=== PATIENT | male | born 1945 | race Caucasian/White ===

== ENCOUNTER 2018-11-27 21:47 | Emergency (ER) | payer MEDICARE, OTHER ==
[~2018-11-27] VITALS: Ht 177.8 cm; Wt 99.8 kg
[~2018-11-27 21:47] MED LIST: ACETAMINOPHEN325 M1 PO; ASPIRIN EC81 MG PO; CELEXA20 MG PO; MUCINEX600 MG PO; NEOSPORIN OINTM30 GM TP; OMEPRAZOLE20 M1 PO; PRAVACHOL10 MG PO; SUDAFED30 MG PO; TUMS X-STR300 MG PO; VITAMIN D1000 UNI1 PO
[2018-11-27] MEDS ORDERED: CITRUCEL POWDE454 GM (22:09)
[2018-11-27] MEDS ORDERED: LIPITOR20 MG PO (22:09)
[2018-11-28] MEDS ORDERED: PREDNISONE20 MG PO (00:31)
[2018-11-28] MEDS ORDERED: TESSALON PERLE100 MG PO (00:31)
--- NOTE | 2018-11-28 07:52 | EKG ---
[facility] [address] [facility] [place], [place] [address] Signed Normal sinus rhythm Cannot rule out Anterior infarct , age undetermined Abnormal ECG No previous ECGs available Confirmed by DANAY VILCHIS MD ([id number]) on 11/28/2018 7:52:10 AM Electronically Signed By: DANAY VILCHIS MD 11/28/18 0752 PATIENT NAME: ORTEGA GRIMALDO Electrocardiogram DATE OF : 47 PHYSICIAN: DANAY VILCHIS MD REPORT #: [id number] REPORT IS CONFIDENTIAL AND NOT TO BE RELEASED WITHOUT AUTHORIZATION
== END 2018-11-28 00:51 | disposition home or self-care (01) ==
LOC: ED 21:47
DX: J06.9 Acute upper respiratory infection, unspecified (principal); J98.01 Acute bronchospasm; E78.5 Hyperlipidemia, unspecified; F41.9 Anxiety disorder, unspecified; Z87.891 Personal history of nicotine dependence; Z79.899 Other long term (current) drug therapy
CPT/HCPCS: 71046; 93005; 93010; 94640; 99283-25; J1100

== ENCOUNTER 2020-12-26 15:52 | Emergency (ER) | payer MEDICARE, OTHER ==
[~2020-12-26] VITALS: Ht 177.8 cm; Wt 99.8 kg
[~2020-12-26 15:52] MED LIST changes: +CITRUCEL POWDE454 GM; +LIPITOR20 MG PO; +PREDNISONE20 MG PO; +TESSALON PERLE100 MG PO
== END 2020-12-26 18:37 | disposition home or self-care (01) ==
LOC: ED 15:52
DX: S93.401A Sprain of unspecified ligament of right ankle, initial encounter (principal); W10.9XXA Fall (on) (from) unspecified stairs and steps, initial encounter; E78.5 Hyperlipidemia, unspecified; Z79.899 Other long term (current) drug therapy
CPT/HCPCS: 73610; 99283-25

== ENCOUNTER 2022-10-18 14:24 | Emergency (ER) | payer MEDICARE, OTHER ==
[~2022-10-18] VITALS: Ht 177.8 cm; Wt 84.8 kg
[~2022-10-18 14:24] MED LIST changes: +CEPHALEXIN500 M1 PO; +CEPHALEXIN750 MG PO; +TAMSULOSIN HCL0.4 MG PO
--- OUTSIDE RECORDS SUMMARY | 2022-10-18 14:32 | XMS ---
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 Pj has no Care Guidelines for this patient. Kim V[facility] (12 MO.) [facility] NOTE: Visits indicate total known visits. ED/C VISIT TRACKING (12 MO.) [facility] Emergency COMPLAINT: - FALLING OFTEN 09/25/2022 01:14 JO[facility] [place] [place] TYPE: Emergency COMPLAINT: - WEAKNESS DIAGNOSES: - Unspecified fall, initial encounter - Contact with and (suspected) exposure to COVID-19 - Weakness - Repeated falls - Hyperlipidemia, unspecified - Other long term care administrator (current) drug therapy - Laceration without foreign body of scalp, initial encounter 09/15/2022 15:57 JO[facility]CE [place] TYPE: Emergency COMPLAINT: - BLOOD PRESSURE PROBLEM DIAGNOSES: - Fever, unspecified - Urinary tract infection, site not specified - Contact with and (suspected) exposure to COVID-19 - Hyperlipidemia, unspecified - Other prison (current) drug therapy INPATIENT VISIT TRACKING (12 MO.) No inpatient visits to display in this time frame [email or web address]
--- NOTE | 2022-10-19 13:08 | EKG ---
[facility] [address] [facility] [place] [address] Signed Normal sinus rhythm Minimal voltage criteria for LVH, may be normal variant ( R in aVL ) Borderline ECG When compared with ECG of 25-SEP-2022 01:40, T wave inversion no longer evident in Inferior leads Confirmed by LUCILA GARCIA MD ([id number]) on 10/19/2022 1:07:57 PM Electronically Signed By: LUCILA GARCIA MD 10/19/22 1308 PATIENT NAME: ORTEGA GRIMALDO Electrocardiogram DATE OF : 47 PHYSICIAN: LUCILA GARCIA MD REPORT #: [id number] REPORT IS CONFIDENTIAL AND NOT TO BE RELEASED WITHOUT AUTHORIZATION
== END 2022-10-18 18:30 | disposition home or self-care (01) ==
LOC: ED 14:24
DX: R53.1 Weakness (principal); E78.5 Hyperlipidemia, unspecified; Z79.899 Other long term (current) drug therapy
CPT/HCPCS: 36415; 80053; 81001; 83735; 84484; 85025; 93005; 93010; 99285-25

== ENCOUNTER 2023-07-19 08:00 | Emergency (ER) | payer MEDICARE, OTHER ==
[~2023-07-19] VITALS: Ht 185.4 cm; Wt 89.8 kg
[~2023-07-19 08:00] MED LIST changes: +CEFDINIR300 MG PO; +CIPRO250 MG PO; +FIBER SELECT G1 EACH PO; +MIRALAX17 GM PO; +MOVE FREE ULTR1 EAC2 PO; +OCUVITE LUTEIN1 EAC2 PO; +PENICILLIN V P500 MG PO; +TRAMADOL HCL50 MG PO; +TUMS SMOOTHIES300 MG PO; +TUMS300 MG PO
[2023-07-19 08:39] LABS: BILIRUBIN, URINE NEGATIVE (negative); BLOOD/HGB, URINE SMALL (Negative); KETONE, URINE NEGATIVE (Negative); LEUK ESTERASE, URINE LARGE (negative); NITRITE, URINE NEGATIVE (negative); PH, URINE 6.5 (5-7)
[2023-07-19 08:47] LABS: BASOPHILS 0.3 % (0-2); EOSINOPHILS 0.6 % (0-6); HEMATOCRIT 40.3 % (35.0-50.0); HEMOGLOBIN 13.7 g/dL (12.0-18.0); LYMPHOCYTES 22.3 % (24-44); MCH 32.8 (27-36); MCV 96.4 fl (81-99); MONOCYTES 8.3 % (0-12); NEUTROPHILS 68.5 % (39-80); PLATELET COUNT 268 K/uL (140-440); RBC 4.18 M/ul (4.3-5.7); RDW 13.4 (10.5-15.0)
[2023-07-19 08:49] LABS: WHITE BLOOD CELLS, URINE >50 /HPF (0-5)
[2023-07-19 08:52] LABS: BACTERIA, URINE 1+ /hpf (negative); COLLECTION TYPE, URINE CLEAN CATCH; REFLEX CULTURE, URINE Yes (No)
[2023-07-19 08:58] LABS: ALBUMIN 3.7 g/dL (3.4-5.0); ALBUMIN/GLOBULIN RATIO 1.12 (1.1-2.4); ANION GAP 14.1 (7-21); BUN/CREATININE RATIO 12.59 (6.0-28.6); CALCIUM 9.2 mg/dL (8.5-10.1); CREATININE, SERUM 1.35 mg/dL (0.70-1.30); POTASSIUM 4.1 mmol/L (3.5-5.1)
[2023-07-19] MEDS ORDERED: LEVOFLOXACIN500 MG PO (09:16)
[2023-07-19 11:11] VITALS: BP 152/61
== END 2023-07-19 11:11 | disposition home or self-care (01) ==
LOC: ED 08:00
PROVIDERS: Internal Medicine
DX: N39.0 Urinary tract infection, site not specified (principal); Z79.899 Other long term (current) drug therapy; Z96.0 Presence of urogenital implants
CPT/HCPCS: 36415; 80053; 81001; 83605; 85025; J1956; J7040

== ENCOUNTER 2024-10-02 09:46 | Emergency (ER) | payer MEDICARE, OTHER ==
[~2024-10-02] VITALS: Ht 185.4 cm; Wt 85.7 kg
[~2024-10-02 09:46] MED LIST changes: +BACTRIM DS TAB1 EACH PO; +LEVOFLOXACIN500 MG PO; +NEOSPORIN OIN28.3 GM TOP; -NEOSPORIN OINTM30 GM TP
[2024-10-02 11:29] LABS: BILIRUBIN, URINE POSITIVE (negative); BLOOD/HGB, URINE LARGE (Negative); KETONE, URINE NEGATIVE (Negative); LEUK ESTERASE, URINE MODERATE (negative); NITRITE, URINE POSITIVE (negative)
[2024-10-02 11:36] LABS: BACTERIA, URINE 1+ /hpf (negative); CASTS, URINE NONE SEEN \\lpf; COLLECTION TYPE, URINE CATH; CRYSTALS, URINE NONE SEEN (0-1+); EPITHELIAL CELLS, URINE SQUAMOUS 1+ /lpf (0-1+); RED BLOOD CELLS, URINE >50 /hpf (0-5); REFLEX CULTURE, URINE Yes (No)
[2024-10-02] MEDS ORDERED: CEFDINIR 300 MG CAP PO ONE (11:45)
[2024-10-02] MEDS ORDERED: CEFTRIAXONE/SODIUM CHLORIDE 2 GM/100 ML PIGGYBACK IV ONE (11:45)
[2024-10-02] MEDS ORDERED: CEFDINIR300 MG PO (13:01)
[2024-10-02 13:12] VITALS: BP 128/71
== END 2024-10-02 13:12 | disposition home or self-care (01) ==
LOC: ED 09:46
PROVIDERS: Emergency Medicine
DX: N39.0 Urinary tract infection, site not specified (principal); E78.5 Hyperlipidemia, unspecified; Z79.899 Other long term (current) drug therapy
CPT/HCPCS: 74176; 81001; 87088; 99284-25

== ENCOUNTER 2024-10-04 08:45 | Inpatient (IN) | payer OTHER, MEDICARE ==
[2024-10-04] VITALS (7 sets, daily range): BP systolic 117–152; BP diastolic 56–657
[~2024-10-04] VITALS: Ht 185.4 cm; Wt 90.4 kg
--- OUTSIDE RECORDS SUMMARY | 2024-10-04 08:51 | XMS ---
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: [facility] PHONE: [phone] Pj has no Care Guidelines for this patient. E.D. VISIT COUNT (12 MO.) 3 JOYCE Moran TOTAL 3 NOTE: Visits indicate total known visits. ED/UCC VISIT TRACKING (12 MO.) 10/04/2024 08:45 [facility] [place] TYPE: Emergency COMPLAINT: - LT ANKLE INJURY 10/02/2024 09:46 [facility]CE Pinto [place] TYPE: Emergency COMPLAINT: - BLOOD IN URINE DIAGNOSES: - Hyperlipidemia, unspecified - Other snf (current) drug therapy - Urinary tract infection, site not specified 04/01/2024 10:[address] [facility] [place] TYPE: Emergency COMPLAINT: - POSS UTI, R EYE BLACK DIAGNOSES: - Contusion of eyeball and orbital tissues, right eye, initial encounter - Disorientation, unspecified - Other moth exterminator (current) drug therapy - Unspecified fall, initial encounter - Urinary tract infection, site not specified INPATIENT VISIT TRACKING (12 MO.) No inpatient visits to display in this time frame [email or web address]
[2024-10-04 09:03] LABS: BASOPHILS 0.4 % (0-2); EOSINOPHILS 0.6 % (0-6); HEMATOCRIT 42.6 % (35.0-50.0); HEMOGLOBIN 14.4 g/dL (12.0-18.0); LYMPHOCYTES 29.2 % (24-44); MCH 32.7 (27-36); MCHC 33.9 g/dl (30-36); MCV 96.4 fl (81-99); MONOCYTES 8.5 % (0-12); NEUTROPHILS 61.3 % (39-80); PLATELET COUNT 293 K/uL (140-440); RBC 4.41 M/ul (4.3-5.7); RDW 12.9 (10.5-15.0)
[2024-10-04 09:20] LABS: ALBUMIN 3.3 g/dL (3.4-5.0); ALBUMIN/GLOBULIN RATIO 0.87 (1.1-2.4); BILIRUBIN, TOTAL 0.8 ng/dL (0.2-1.0); BUN/CREATININE RATIO 17.51 (6.0-28.6); CREATININE, SERUM 1.37 mg/dL (0.70-1.30); PROTEIN, TOTAL 7.1 g/dL (6.4-8.2)
[2024-10-04] MEDS ORDERED: fentaNYL citrate 100 MCG/2 ML VIAL IV ONE (10:00)
[2024-10-04] MEDS ORDERED: CEFDINIR 300 MG CAP PO ONE (10:45)
--- NOTE | 2024-10-04 11:32 | NUR ---
PT ARRIVES TO FLOOR IN STRETCHER PUSHES BY ED RN. PT TRANSFERRED TO HOSPITAL BED WITH TOTAL ASSIST AND SLIDE SHEET. WT AND VS TAKEN AND RECORDED. PTs CAREGIVER, MILIND, ALSO PRESENT. PT SKIN CHECK WITH BARBRA BE RN. REDNESS NOTED TO GROIN AREA - CLEANED AND BARRIER CREAM APPLIED AT THIS TIME. SURGICAL SCAR NOTED TO MIDLINE OF ABDOMEN. 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 NO OTHER SKIN ISSUES NOTED. PT IN BED AT THIS TIME, ON ROOM AIR WITH SUSTAINED SPO2>96%. NO OTHER NEEDS, CALL LIGHT IN REACH.
[2024-10-04] MEDS ORDERED: HYDROmorphone HCL 1 MG/ML SYR IV PRN ×2 (12:30→17:45)
[2024-10-04] MEDS ORDERED: ondansetron HCL 4 MG/2 ML VIAL IV PRN ×2 (12:30→17:45)
--- NOTE | 2024-10-04 12:35 | NUR ---
ASSESSMENT COMPLETE. PT LUNG SOUNDS CLEAR TO BUL, DIMINISHED IN BLL. PT HAS NO COMPLAINTS OF SOB, MAKES AUDIBLE NOISE UPON EXHALE THAT CAREGIVER MILIND STATES IS NORMAL FOR HIM. HEART SOUNDS NORMAL AND REGULAR, BOWEL TONES ACTIVE IN ALL FOUR QUADRANTS, ABDOMEN IS SOFT AND NON-TENDER TO PALPATION. CAREGIVER SUPPLIES ALL EXTERNAL INFORMATION FOR THIS ASSESSMENT AND REPORTS THAT PT HAD A BOWEL MOVEMENT THIS AM. PTs L LEG IS WRAPPED CAST DRESSING AND COBAN, ELEVATED ON TWO PILLOWS AT THIS TIME. PEDAL PULSE FELT 2+ AND STRONG IN BILAT FEET, CAP REFILL LESS THAN 3 SECONDS, PT TOES ARE WARM AND HE IS WIGGLING THEM. PT HAS NO COMPLAINTS OF PAIN AT THIS TIME AND IS NOT GIVING ANY INDICATION THAT HE IS IN PAIN. PTs CAREGIVER IS CONCERNED REGARDING FENTANYL ADMINISTRATION IN ED, EDUCATED USE ON PAIN MEDICATION WHILE IN THE HOSPITAL, CAREGIVER VERBALIZES UNDERSTANDING. NO REQUESTS AT THIS TIME, CALL LIGHT IN REACH, CAREGIVER REMAINS IN ROOM.
--- NOTE | 2024-10-04 13:07 | NUR ---
STYLIST ASSISTANT ASHLEY AND PT CAREGIVER REPORT PT IS EXPERIENCING PAIN. PRN PAIN MEDICATION ADMINISTERED AT THIS TIME, FLACC SCALE GIVES PAIN LEVEL 3/10. PULSE OX APPLIED WHILE PUSHING MEDICATION AND FOR A FEW MINUTES AFTER, PTs OXYGEN SUSTAINS 96% ON ROOM AIR. NO OTHER NEEDS AT THIS TIME, CALL LIGHT IN REACH.
--- NOTE | 2024-10-04 13:30 | NUR ---
INTO SEE PATIENT. CAREGIVER BRII CALLED. PATIENT PERSONAL INFORMATION REVIEWED. PATIENT LIVES IN A HOUSE WITH BRII. WHEELCHAIR RAMP TO GET INTO. NO STAIRS IN THE HOME. PATIENT HAS ACCESS TO A WALKER IF NEEDED. DOES NOT USE ANY DME AT [facility]. PATIENT DOES NOT HAVE ANY DIFFCULTY GETTING OUT OF BED. BRII STATES "WE WILL SEE WHAT HE NEEDS AFTER SURGERY BUT I WOULD PREFER HIM TO GO HOME HE HAS ACCESS TO STAFF AND GOES TO A DAY PROGRAM." DENIES ANY DIFFCULTY PAYING UTILITIES OR OBATINING FOOD. HE DOES NOT DRIVE. PATIENT DOES NOT NEED ANYTHING FROM AT THIS TIME. WILL CONTINUE TO FOLLOW AND FOLLOW UP POST SURGERY.
--- NOTE | 2024-10-04 13:56 | NUR ---
PT SUPPLIED WITH JUICE, HE IS AWAKE AND ALERT IN BED WATCHING TELEVISION. PT CONTINUALLY REPEATS "MILIND WAS TRYIN..." PT IS REPEATING ANYTHING THIS RN ASKS, APPEARS COMFORTABLE IN THE BED WITH NO FROWN/GRIMACE, NO RESTLESS MOVEMENTS, NO CALLING OUT. LLE REMAINS ELEVATED ON TWO PILLOWS. PORTILLO CATH FREELY DRAINING CLEAR, YELLOW URINE TO L SIDE OF BED. NO REQUESTS AT THIS TIME, CALL LIGHT IN REACH.
--- NOTE | 2024-10-04 15:35 | NUR ---
MED REC COMPLETE
[2024-10-04] MEDS ORDERED: LIDOCAINE 2% VISCOUS 6 ML SYR TOP ONE (16:45)
[2024-10-04] MEDS ORDERED: LACTATED RINGER'S 1,000 ML IV SCH (16:45)
--- NOTE | 2024-10-04 16:45 | NUR ---
DR MCDONALD SPEAKING WITH PTs CAREGIVER, MILIND AND WITH PT. MD ANSWERS ALL QUESTIONS, DISCUSSES DISCHARGE PLAN WITH MILIND. PT AND PT CAREGIVER HAVE NO OTHER CONCERNS AT THIS TIME, DINNER TRAY ARRIVES, CALL LIGHT IN REACH, MILIND REMAINS IN ROOM.
--- NOTE | 2024-10-04 17:42 | NUR ---
LEFT MESSAGE ON DR MCDONALD CELL REGARDING PT PAIN MEDICATION ORDERS.
--- NOTE | 2024-10-04 18:20 | NUR ---
MD RETURNED CALL, VERIFIED PAIN MED/NAUSEA MEDS FOR PATIENT. ORDERS UPDATED PER MD VERBAL, DILAUDID 0.5MG Q2HRS PRN, ZOFRAN 4MG IV Q6HRS PRN FOR NAUSEA. ORDERS UPDATED THE BRIDGE ORDERS WILL FALL OFF IN MIDDLE OF NIGHT.
--- NOTE | 2024-10-04 18:30 | NUR ---
PRN PAIN MEDICATION ADMINSTERED, SEE MAR. PT CAREGIVER REPORTS PT HAS COMPLAINED OF L ANKLE PAIN. PT APPEARS TO AGREE WITH THIS, FLACC SCORE RATED. PT RESTING IN BED AT THIS TIME, IVF INFUSING WNL. NO REQUESTS, CALL LIGHT IN REACH, PT HAS THREE VISITORS IN ROOM AT THIS TIME.
--- NOTE | 2024-10-04 19:33 | NUR ---
REPORT RECIEVED FROM DAY SHIFT RN. PATIENT RESTING IN BED WITH FOSTER "SISTER" MILIND IN ROOM. NO NEEDS AT THIS TIME. CALL LIGHT IN REACH.
--- NOTE | 2024-10-04 20:25 | NUR ---
PATIENT RESTING IN BED WITH COMPLAINTS OF LLE PAIN. VS AND I&Os OBTAINED AND RECORDED. PRN PAIN MEDICATION ADMINISTERED. IV FLUSHES WNL. SUPRAPUBIC CATHETER CARE PERFORMED PER PROTOCOL. PATIENT REPOSTIONED IN BED. LLE ELEVATED WITH 2 PILLOWS. PATIENT HAS NO FURTHER NEEDS AT THIS TIME. BED ALARM ON. ASSESMENT COMPLETE. CALL LIGHT IN REACH.
--- NOTE | 2024-10-04 23:39 | NUR ---
ROUNDING ON PATIENT. PATIENT RESTING IN BED WITH EYES OPEN. THIS RN ASKED PATIENT IF HE WAS IN PAIN AND HE STATED "PAIN". PATIENT THAN STATED "PAIN IN LEG". PRN PAIN MEDICATION ADMINISTERED. PATIENT DENIES FURTHER NEEDS AT THIS TIME. CALL LIGHT IN REACH. BED ALARM ON.
[2024-10-05] VITALS (12 sets, daily range): BP systolic 112–155; BP diastolic 47–69
--- NOTE | 2024-10-05 00:01 | NUR ---
PATIENT NPO AT THIS TIME. FOOD AND DRINKS REMOVED OFF BEDSIDE TABLE.
--- NOTE | 2024-10-05 01:25 | NUR ---
ROUNDING ON PATIENT. PATIENT STATING LLE PAIN. PRN PAIN MEDICATION ADMINISTERED. VS AND I&Os OBTAINED AND RECORDED. LLE ELEVATED ON PILLOWS. BED ALARM ON. CALL LIGHT IN REACH.
--- NOTE | 2024-10-05 03:19 | NUR ---
PATIENT RESTING IN BED WITH EYES CLOSED. RESPIRATIONS EVEN AND UNLABORED. CALL LIGHT IN REACH.
--- NOTE | 2024-10-05 05:02 | NUR ---
ROUNDING ON PATIENT. VS AND I&Os OBTAINED AND RECORDED. PRN PAIN MEDICATION ADMINSITERED. NO FURTHER NEEDS. CALL LIGHT IN REACH.
--- NOTE | 2024-10-05 05:55 | NUR ---
PATIENT RESTING IN BED. PRE-SURGICAL [place]IPEDOWN COMPLETE. NEW GOWN AND LINENS PLACED. SCD PLACED ON RLE. LLE ELEVATED ON 2 PILLOWS. PATIENT GYPSY WELL. BED ALARM ON. NO FURTHER NEEDS. CALL LIGHT IN REACH.
[2024-10-05] MEDS ORDERED: TRANEXAMIC ACID IN NACL,ISO-OS 1,000 MG/100 ML PIGGYBACK IV SCH (07:00)
[2024-10-05] MEDS ORDERED: CEFAZOLIN SODIUM 2 GM/20 ML SYR IV SCH ×2 (07:00→15:00)
--- NOTE | 2024-10-05 07:32 | NUR ---
REPORT RECEIVED FROM DAVID DAVIS. PT RESTING IN BED AWAKE AND ALERT WATCHING TELEVISION, CAREGIVER PRESENT ON COUCH. PT HAS NO REQUESTS AT THIS TIME, CALL LIGHT IN REACH, CAREGIVER REMAINS IN ROOM.
[2024-10-05] MEDS ORDERED: DEXAMETHASONE SOD PHOS 4 MG/ML VIAL ONE ×2 (07:45→10:26)
[2024-10-05] MEDS ORDERED: LIDOCAINE HCL 2% 20 MG/ML VIAL INJ ONE (07:45)
[2024-10-05] MEDS ORDERED: propofoL 200 MG/20 ML VIAL ONE (07:45)
[2024-10-05] MEDS ORDERED: Ropivacaine HCl 0.5% 30 ML VIAL ONE ×2 (07:45)
--- NOTE | 2024-10-05 07:46 | NUR ---
ABX AND TXA READY IN ROOM, LR WITH STRAIGHT TUBING PREPPED. PT RESTING IN BED, CAREGIVER AWAKE AND CONVERSING WITH THIS RN. NO REQUESTS, CALL LIGHT IN REACH.
--- NOTE | 2024-10-05 08:45 | NUR ---
SURGERY ARRIVES TO TAKE PT. PT OFF THE FLOOR AT THIS TIME.
[2024-10-05] MEDS ORDERED: FLU VACC TS2024(65UP)/MF59C/PF 1 EACH SYR IM SCH (09:00)
[2024-10-05] MEDS ORDERED: SODIUM CHLORIDE 0.9% 20 ML IV ONE (09:11)
--- NOTE | 2024-10-05 09:20 | NUR ---
PT REMAINS OFF THE FLOOR AT THIS TIME.
[2024-10-05] MEDS ORDERED: ePHEDrine sulfate 50 MG/ML AMP ONE (09:26)
[2024-10-05] MEDS ORDERED: fentaNYL citrate 100 MCG/2 ML VIAL ONE (09:28)
--- NOTE | 2024-10-05 09:40 | NUR ---
Attempted to see pt and CG. He has not returned from surgery. I spoke with Dr. Palomo and he states pt will need a SNF and cg is now in agreement.
--- NOTE | 2024-10-05 09:43 | NUR ---
PT NOT AVAILABLE FOR VISIT. PROVIDED PRAYER.
--- NOTE | 2024-10-05 10:17 | NUR ---
PT REMAINS OFF THE FLOOR AT THIS TIME.
--- NOTE | 2024-10-05 10:17 | EKG ---
[facility] [address] [facility] [place] [address] Signed Normal sinus rhythm Septal infarct , age undetermined Abnormal ECG When compared with ECG of 08-DEC-2022 10:15, Septal infarct is now present Inverted T waves have replaced nonspecific T wave abnormality in Inferior leads Nonspecific T wave abnormality, worse in Lateral leads Confirmed by Tremaine Olmstead DO ([id number]) on 10/05/2024 10:17:42 AM Electronically Signed By: TREMAINE OLMSTEAD DO 10/05/24 1017 PATIENT NAME: ORTEGA GRIMALDO JUAN Electrocardiogram DATE OF : 47 PHYSICIAN: TREMAINE OLMSTEAD DO REPORT #: [id number] REPORT IS CONFIDENTIAL AND NOT TO BE RELEASED WITHOUT AUTHORIZATION
[2024-10-05] MEDS ORDERED: ondansetron HCL 4 MG/2 ML VIAL ONE (10:26)
[2024-10-05] MEDS ORDERED: ALBUTEROL/IPRATROPIUM 3 ML NEB INH ONE (11:15)
--- NOTE | 2024-10-05 11:17 | OR ---
[facility] [address] [place], [place] [address] Signed DATE OF OPERATION: 10/05/2024 SURGEON: Joshua Palomo MD PREOPERATIVE DIAGNOSIS: Left trimalleolar fracture dislocation, left ankle. POSTOPERATIVE DIAGNOSIS: Left trimalleolar fracture dislocation, left ankle. PROCEDURE PERFORMED: Open reduction and internal fixation, trimalleolar ankle fracture. OVEN TENDER: None. ANESTHESIA: General. TOURNIQUET TIME: 64 minutes. IMPLANTS: A seven hole one-third tubular plate with seven screws laterally, two headless screws medially and two 3.5 screws anteriorly. BRIEF HISTORY: Cristian is a 79-year-old gentleman, who suffered a fracture dislocation of his ankle yesterday morning while walking on icy ground. He was seen in the ER, partially reduced and I admitted the patient for surgery today due to the instability of the fracture. The risks and benefits were discussed with his caregiver and they elected to proceed with surgery. The patient is mentally disabled. PROCEDURE IN DETAIL: Once consent was obtained, he was taken to the operating room. After adequate anesthesia, he was placed on the operating table with a hip bump. The left leg was placed in a well-padded proximal thigh tourniquet. The leg was prepped and draped in the standard sterile fashion. The leg was then exsanguinated using Esmarch bandage and tourniquet inflated to 250 mmHg. The lateral side was approached first through a standard longitudinal incision, carried through the skin and subcutaneous tissue. Electronically Signed By: JOSHUA PALOMO MD 10/05/24 1117 PATIENT NAME: CRISTIAN GRIMALDO OPERATIVE REPORT DATE OF : 47 REPORT #: [id number] PHYSICIAN: JOSHUA PALOMO MD PCP: JASON MCGOWAN DO REPORT IS CONFIDENTIAL AND NOT TO BE RELEASED WITHOUT AUTHORIZATION [facility] [address] [place], [place] [address] Signed Periosteum was incised longitudinally and elevated. The fracture was distracted and cleared. It was then reduced and cross clamped. The isthmus of the fibula was quite small. I was unable to safely get a lag screw from anterior to posterior placed without was afraid breaking the bone. We then elected to go with a neutralization plate on the lateral side. The seven hole one-third tubular plate was then contoured to fit the lateral malleolus and was held with the central screw. It was then adjusted using image intensifier and three screws were placed proximal and three screws distal. Two locking screws were placed at the end. The lateral malleolus still had a fair amount of the plate in the fibula once it was fixed. I suspected that the posterior malleolar fracture was quite unstable. We then split a pointed tenaculum around, behind the fibula and tibia engaging the posterior malleolus and clamping it into position. Two screws were then placed percutaneously from anterior to posterior. Skin incisions were made and blunt dissection was taken down to the bone. Care was taken to protect the surrounding neurovascular structures. Two screws were placed again under image intensifier guidance. Once this was completed, the medial malleolus was approached through a standard longitudinal incision. Care was taken to protect the cephalic vein. The fracture was distracted. There was a large piece of periosteum flipped into it. This was removed and the fracture was reduced and clamped with a malleolar clamp. This was checked using image intensifier and found to be anatomically reduced. Two guidewires for the headless screw set were then placed from the tip of the malleolus engaging the body of the tibia. Two screws were then placed over this and tightened creating a lag effect of the lateral malleolus. The guidewire was removed. All wounds were cleansed with normal saline and irrigated. Deep tissues were closed in layers using 2-0 Monocryl. The skin was closed with florentino throughout. The ankle had a fair amount of swelling, so we did go ahead and placed him in a bulky Meadows dressing over sterile cast padding and Allevyn dressings. He tolerated the procedure well. All sponge, needle, and instrument counts correct. Joshua Palomo MD BA/MODL /[id number] Electronically Signed By: JOSHUA PALOMO MD 10/05/24 1117 PATIENT NAME: CRISTIAN GRIMALDO OPERATIVE REPORT DATE OF : 47 REPORT #: [id number] PHYSICIAN: JOSHUA PALOMO MD PCP: JASON MCGOWAN DO REPORT IS CONFIDENTIAL AND NOT TO BE RELEASED WITHOUT AUTHORIZATION [address] [address] Signed Copies: ~ Electronically Signed By: JOSHUA PALOMO MD 10/05/24 1117 PATIENT NAME: CRISTIAN GRIMALDO OPERATIVE REPORT DATE OF : 47 REPORT #: [id number] PHYSICIAN: JOSHUA PALOMO MD PCP: JASON MCGOWAN DO REPORT IS CONFIDENTIAL AND NOT TO BE RELEASED WITHOUT AUTHORIZATION
--- NOTE | 2024-10-05 11:26 | NUR ---
PT REMAINS OFF THE FLOOR AT THIS TIME.
[2024-10-05] MEDS ORDERED: KETOROLAC TROMETHAMINE 15 MG/ML VIAL IV PRN (11:30)
[2024-10-05] MEDS ORDERED: HYDROCODONE/ACETA 7.5/325 TAB PO PRN (11:30)
--- NOTE | 2024-10-05 11:35 | NUR ---
10/05/24 1135 Lucina Daniels 1047- PT ARRIVES TO THE PACU WITH A NATURAL AIRWAY ON 6L OF O2 VIA MASK. LARGE AMOUNT OF SNORING NOTED WITH AN EXHILATORY WHEEZE AND EXCESSORY MUSCLES USED ON EXHILATION. PT IS ABLE TO MAINTAIN AIRWAY. PT IS REACTIVE TO TACTILE STIMULI AND OPENS HIS EYES BREIFLY AND IMMEDIATELY FALLS BACK TO SLEEP. ALL MONITORS PUT IN PLACE. SURGICAL SITE IS CDI. SUPRPUBIC CATHETER IS DRAINING. LR INFUSING IN PT L AC. NO SIGNS OF APPARENT DISTRESS. HOB INCREASED. ICE PACK PUT IN PLACE AND PILLOW PUT INPLACE FOR ELEVATION AND COMFORT. 1057- PT WAKES TO TACTILE STIMULI AND OPENS HIS EYES. PT IS ABLE TO ADJUST HIS HEAD ON THE PILLOW AND REACHES TOWARD HIS FACE. MASK REMOVED BREIFLY SO THAT PT CAN ITCH HIS FACE. PT IS ENCOURAGED TO COUGH AND PT IS UNABLE TO FOLLOW DIRECTIONS AND FALLS BACK TO SLEEP WITH A LARGE AMOUNT OF SNORING NOTED. 6L OF O2 REPLACED ONPT FACE. RT CALLED FOR TREATMENT. 1111- RESPITORY THERAPY AT BEDSIDE. DUONEB TREATMENT GIVEN. LESS EXPIRATORY WHEEZE NOTED THAN PRIOR TO TREATMENT. PT CLOSES EYES AND FALLS BACK TO SLEEP SNORING. 1113- O2 TURNED OFF AND REMOVED. PTDESATS TO 86% AND2L OF O2 VIA NC PUT IN PLACE AND PT O2 SATS INCREASE TO 92%. WILL CONTINUE TO MONITOR.
--- NOTE | 2024-10-05 11:45 | NUR ---
PT RETURNS FROM SURGERY IN HOSPITAL BED WITH DAVID SCHMIDT. VS TAKEN, CPOX IN PLACE, SCD IN PLACE ON RLE. DRESSING ON RLE C/D/I. PT CURRENTLY ON 2L O2 WITH SPO2 OF 92-93%. NO COMPLAINTS OF PAIN OR NAUSEA AT THIS TIME. TOES ON LLE ARE WARM TO THE TOUCH WITH GOOD CAPILLARY REFILL. PT HAS LLE ELEVATED ON A PILLOW AT THIS TIME. SEVERAL VISITORS PRESENT IN ROOM. PT REPEATING "IT'S TUESDAY" WELL "I'M STONED". ICE WATER PROVIDED, PT HAS NO OTHER REQUESTS AT THIS TIME, CALL LIGHT IN REACH, VISITORS REMAIN IN ROOM.
--- NOTE | 2024-10-05 11:50 | NUR ---
Spoke with pt.s cg, Vannessa Piña. She now is stating they would like this pt to go to [place] on dc. Per Dr. Palomo, pt will be here through the weekend. Pt lives with Vannessa and has done so for 23 years. Pt s guardian is Gisselle Scarlett [phone]. Pt is on service with [facility]. I will notify them plan is for SNF on dc. Called and spoke with [facility] at 1145. 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
--- NOTE | 2024-10-05 11:55 | NUR ---
APPLESAUCE AND ICE WATER PROVIDED. PT REMAINS ON 2L O2 VIA NC, CPOX AT BEDSIDE. PT CONTINUES TO REPORT NO PAIN OR NAUSEA AT THIS TIME. SEVERAL VISITORS IN ROOM.
--- NOTE | 2024-10-05 12:28 | NUR ---
PT OXYGEN TITRATED TO 1L, PT SUSTAINS 93% SPO2 ON CPOX. CURRENTLY EATING A CRISTI CRACKER, REPORTS NO NAUSEA OR PAIN. VISITOR AT BEDSIDE, CALL LIGHT IN REACH.
--- NOTE | 2024-10-05 12:40 | NUR ---
PT RESTING IN BED, ALARM IN PLACE, WATCHING TV. FAMILY JUST LEFT PATIENT IS GETTING SLEEPY ON/OFF. DRESSING TO (L) ANKLE REMAINS CDI, NO BLOODY DRAINAGE. ICE IN PLACE. DENIES ANY NEEDS AT THIS TIME, CALLL LIGHT WITHIN REACH.
--- NOTE | 2024-10-05 12:57 | NUR ---
PT RESTING WITH EYES CLOSED, BREATHING THROUGH MOUTH, RR EVEN AND UNLABORED. SPO2 SUSTAINS 88% ON CPOX WITH GOOD WAVEFORM. OXYGEN TITRATED TO 3L NC AT THIS TIME. SPO2 INCREASES AND SUSTAINS 92%. PT CONTINUES RESTING WITH EYES CLOSED, RR EVEN AND UNLABORED. CALL LIGHT IN REACH.
--- NOTE | 2024-10-05 13:02 | NUR ---
PHYSICAL AND OCCUPATIONAL THERAPY CURRENTLY IN WORKING WITH PT. VISITORS ARE NOT PRESENT AT THIS TIME.
--- NOTE | 2024-10-05 13:30 | NUR ---
Chart faxed to [facility] per CG request.
[2024-10-05] MEDS ORDERED: SEVOFLURANE 250 ML BTL INH ONE (13:33)
--- NOTE | 2024-10-05 13:47 | NUR ---
VS TAKEN. OXYGEN TITRATED TO 2L, PT SUSTAINS SPO2 OF 94% ON CPOX. LLE REMAINS ELEVATED, CAP REFILL LESS THAN 3 SECONDS, TOES WARM TO TOUCH. ROLLED TOWEL BENEATH R HEEL, SCD IN PLACE ON R LEG. PT STATES "FINE" WHEN ASKED HOW HIS LEG FEELS. APPEARS COMFORTABLE IN BED. NO REQUESTS AT THIS TIME, CALL LIGHT IN REACH.
--- NOTE | 2024-10-05 14:30 | NUR ---
Received a text asking if the cg is the POA. I texted her Gisselle's and Vannessa's phone numbers.
[2024-10-05] MEDS ORDERED: ACETAMINOPHEN 500 MG TAB PO SCH (15:00)
--- NOTE | 2024-10-05 15:07 | NUR ---
VS TAKEN. MEDICATION ADMINISTERED, SEE NOV. PT REPOSITIONED IN BED WITH HELP OF JOHNNIE LONG. PT SWALLOWS MEDICATION WITHOUT ISSUE. PT STATES "COLD". WARM BLANKETS PROVIDED. PT STATES "BETTER". PT OXYGEN AT 1L NC, SPO2 SUSTAINS 93% ON CPOX. PT HAS OCCASIONAL COUGH WITH NO PRODUCTION NOTED. PT REPORTS NO SHORTNESS OF BREATH AT THIS TIME. PT PROVIDED WITH SANDWICH BOX, BEGINS TO EAT WITH SETUP ASSISTANCE. RLE IN SCD, LLE DRESSING IS C/D/I, CONTINUES TO BE ELEVATED ON A PILLOW AT THIS TIME. PT ASKED HOW HOW IS FOOT IS FEELING, HE STATES "FINE". PT HAS NO OTHER REQUESTS AT THIS TIME, CALL LIGHT IN REACH, BED ALARM ON, BED IN LOWEST POSITION.
--- NOTE | 2024-10-05 17:20 | NUR ---
PT ASSISTED WITH THIS RN AND SRT ART TO GET ON BEDPAN HE IS REPORTING HE NEEDS TO HAVE A BOWEL MOVEMENT. PT ON BEDPAN AT THIS TIME. CAREGIVER MILIND IN ROOM.
--- NOTE | 2024-10-05 18:11 | NUR ---
MD NOTIFIED OF PTs CAREGIVER REQUESTING BOWEL MEDICATIONS TO BE SCHEDULED. VERBAL ORDER PLACED.
--- NOTE | 2024-10-05 20:50 | NUR ---
Pt alert to self and situation. On room air at this time, CPOX on post op. scds in place. L Leg dressing in place, good CMS. ice to area. SL patent, Medicated with Tylenol schedule and Toradol 15mg IV per 5/10 L ankle pain. Suprapubic catherer in place, draining light tea colored urine. Attends in place. restless, redirectable foster home provider in room and helping with pt.
[2024-10-05] MEDS ORDERED: POLYETHYLENE GLYCOL 3350 1 PACKET PO SCH (21:00)
[2024-10-05] MEDS ORDERED: SENNOSIDES 1 TAB PO SCH (21:00)
--- NOTE | 2024-10-05 22:00 | NUR ---
rESTING, EYES CLOSED, NO FURTHER C/O DISTRESS. ON ROOM AIR NOW. POST OP CPOX IN PLACE. TURNS AND REPOSITIONS SELF IN BED. L LEG ELEVATED W PILLOWS, GOOD CMS. SCDS R LEG. S/P F/C IN PLACE, INTACT, DRAINING TEA COLORED URINE. FOSTER HOME PROVIDER ROOMIN IN
--- NOTE | 2024-10-05 23:55 | NUR ---
AWAKENS EASILY. SKIN MOIST, DRIED, CLEAN GOWN AND BEDDING. COOPERATIVE. AFEBRILE TEMP 96.9 TEMPORAL. TRIES TO HELP. SL PATENT, L LEG ELEVATED IN PILLOWS.NO C/O PAIN. CAREGIVER IN ROOM
[2024-10-06] VITALS (10 sets, daily range): BP systolic 111–146; BP diastolic 45–64
--- NOTE | 2024-10-06 02:37 | NUR ---
resting, eyes closed, no s/sx distress. L leg dressing CDI, elevated with pillows, SCD's R leg
--- NOTE | 2024-10-06 03:38 | NUR ---
FOUND PATIENT OFF CPOX, DC'ED ORDER
--- NOTE | 2024-10-06 05:41 | NUR ---
PATIENT IS NOTED TO BE RESTLESS IN BED. PATIENTS CG REPORTS PATIENT IS IN PAIN, PRN PAIN MEDICATION GIVEN PER ORDER. PATIENT INCONT OF URINE. PATIENTS ATTEND CHANGED AND DEVAUGHN CARE COMPLETED. PATIENT HAS NEW ATTEND IN PLACE. PATIENT REPOSITIONED IN BED. LLE ELEVATED ON PILLOWS. PATIENT HAS SCD IN RLE. PATIENT PROVIDED FRESH ICE WATER. VITALS TAKEN AND RECORDED. INTAKE AND OUTPUT RECORDED. CALL LIGHT IN REACH. BED ALARM ON FOR SAFETY.
--- NOTE | 2024-10-06 07:44 | NUR ---
Patient awake in bed. Patient reports "pain" then points to left leg. Snack provided at this time with one tab Corn 7.5/325mg po. Bed alarm intact, close to RN station.
[2024-10-06] MEDS ORDERED: Rivaroxaban 10 MG TAB PO SCH (08:00)
--- NOTE | 2024-10-06 08:26 | NUR ---
Board has been updated and call light has been placed within reach, caregiver at bedside. No request at this time
[2024-10-06] MEDS ORDERED: CEFDINIR 300 MG CAP PO SCH (09:34)
--- NOTE | 2024-10-06 11:29 | NUR ---
PT UP IN CHAIR, CHECKED IN ON PT, BRII AT CHAIRSIDE AT THIS TIME. CHAIR ALARM IN PLACE, CALL LIGHT WITHIN REACH, PT JUST WATCHING TV/RELAXING IN THE CHAIR. THEY BOTH DENY ANY NEEDS AT THIS TIME. ALL PT CARE NEEDS MET.
--- NOTE | 2024-10-06 13:00 | NUR ---
Patient assisted back to bed using sling, two person assist. Patient received two tabs [place] 7.5/325mg po at this time for LLE pain.
--- NOTE | 2024-10-06 14:24 | NUR ---
Patient taking a nap at this time. No distress, respirations even and non labored.
--- NOTE | 2024-10-06 17:29 | NUR ---
PT LANE DRESSING IS COMING OFF, PT IS WIGGLING DOWN IN THE BED AND MOVING FOOT. DR. MCDONALD INFORMED, PER HIS TELEPHONE ORDERS, TAKE OFF LANE DRESSING, LEAVE CAST PADDING. NEW ALLEVYN OVER THE PIN SITES, EZEQUIEL WRAP AND FRACTURE BOOT. PRIMARY RN NOTIFIED.
--- NOTE | 2024-10-06 18:42 | NUR ---
LLE dressing falling off. New allyvn placed over wound sites, then cast padding, sebastien wrap then fracture boot placed. CMS intact, scant dry blood noted to incision sites. Patient tolerated well. morning caregiver at bedside with patient. Patient appears to have good pain control.
--- NOTE | 2024-10-06 21:31 | NUR ---
PT ALERT TO SELF AND SITUATION ONLY. PLEASANT AND COOPERATIVE, CALM, FOLLOWS INSTRUCTIONS AFTER SEVERAL CUES. ON ROOM AIR. CLEAR LUNGS, ABD SOFT, HEA, LBM 10/04, SMEAR OF BM WHEN WIPING 10/05. SP CATHERER IN PLACE, DRAINING TEA CLORED QS URINE. SCDS TO R LEG, DRESSING TO L LEG AND ORTHO BOOT IN PLACE ELEVATED WITH PILLOWS. PT MOVING LE WELL. WAS MEDICATED WITH NORCO 2 TABS, TOOK MIRALAX, PT REPOSITINED AND TURNED IN BED, ATTENDS IN PLACE. [facility] HOME PROVIDER IN ROOM.
[2024-10-07] VITALS (9 sets, daily range): BP systolic 138–159; BP diastolic 59–67
--- NOTE | 2024-10-07 00:24 | NUR ---
RESTING, EYES CLOSED, NO S/SX DISTRESS, L LEG W ORTHO BOOT IN PLACE, ELEVATED, ABEL REMOVED EARLIER, BED ALARM IN PLACE, FALL PRECAUTIONS IN PLCE
--- NOTE | 2024-10-07 04:00 | NUR ---
PT RESTING, EYES CLOSED, ON ROOM AIR. L LEG ELEVATED WITH PILLOWS, DRESSING CDI, ORTHO BOOT IN PLACE. SCD R LEG, BED ALARM FOR FALL PRECAUTIONS. CAREGIVER IN ROOM
--- NOTE | 2024-10-07 05:10 | NUR ---
caregiver leaving to go home for a few hours, plans to return before breakfast. this rn turned on bed alarm, fall mats in place. pt resting in bed, eyes closed, on ra. briefly awoke, encouraged to rest. call vinicio in [facility] rn aware and heading to room for am cares.
--- NOTE | 2024-10-07 05:39 | NUR ---
Awakens easily, has slept most of this shift, restless when awake, c/o pain L leg, medicated with toradol IV. SL patent. L leg dressing CDI, ortho boot in place. elevated with pillows. toes warm. sp catherer inertion site cleansed. patent, draining pink colored urine at begining of shift, and clear yellow colored at this time. unknown if pt pulls at it. no bm this shift. fresh water and chocolate ensure , tolerated well. cooperative, all cares explained prior to. Bed alrm in place, fall precautions pads in place. hob elevated to comofrt too.
--- NOTE | 2024-10-07 07:42 | NUR ---
PT RESTING IN BED AWAKE, CAREGIVER AT BEDSIDE. REPORT RECEIVED CARE COORDINATED. PT DRINKING FLUIDS WITH ENCOURAGEMENT NO OTHER NEEDS AT THIS TIME.
--- NOTE | 2024-10-07 08:05 | NUR ---
PT CAREGIVER CONCERNED UNDERGARMENT MAY BE DIRTY, PT PASSING GAS. STAFF ASSIST TO CHANGE UNDERGARMENT AND DO DEVAUGHN CARE. SKIN IN TACT NO S/S OF REDNESS OR TROUBLED AREAS. PT IS COOPERATIVE WITH PERSONAL CARES. NO STOOL PASSED. PT EATS ENTIRE MORNING MEAL REMAINS IN BED WITH LE ELEVATED ON PILLOWS. PT DENIES PAIN, HUNGER, OR NEEDS OF. PT HAD SOME AUDIBLE WHEEZES EARLIER IN THE SHIFT ENCOURAGED TO COUGH AND DEEP BREATH AT THAT TIME. LUNG SOUNDS ARE CLEAR NOW WITH NO FURTHER WHEEZE.
--- NOTE | 2024-10-07 08:20 | NUR ---
Board has been updated and call light has been placed within reach
--- NOTE | 2024-10-07 09:25 | NUR ---
PT SITTING UP WATCHING TV, CAREGIVER REMAINS IN THE ROOM. PT DENIES PAIN IN HIS ANKLE. FRESH H20 TO BEDSIDE. NO OTHER NEEDS AT THIS TIME
--- NOTE | 2024-10-07 10:05 | NUR ---
BOOT CHANGED TO SMALLER SIZE PER VERBAL ORDER. CHANGED BY DAVID GARVEY.
--- NOTE | 2024-10-07 10:41 | NUR ---
BETTER FIT BOOT APPLIED A SHORT TIME AGO, WELL TOLERATED. PT RESTING EYES CLOSED NOW, SO IS CAREGIVER. LEFT UNDISTURBED
--- NOTE | 2024-10-07 10:48 | NUR ---
CARE FOR SUPRAPUBIC CATH COMPLETED AT START OF SHIFT. PORTILLO DRAINING TEA COLORED URINE. NOC SHIFT RN REPORTED PT PULLING ON TUBING. TUBING IS OUT OF SIGHT AND PT HAS NOT BEEN OBSERVED PULLING IT THIS SHIFT
--- NOTE | 2024-10-07 11:06 | NUR ---
CCS WORKER IN TO SEE PT SPEAKS WITH DR KC PRIOR TO VISIT FOR PT HISTORY AND TREATMENT. ALL QUESTIONS ANSWERED.
--- NOTE | 2024-10-07 12:22 | NUR ---
PT ASSISTED TO MOVE UP IN BED FOR NOON MEAL. HE IS SELF FEEDING AT THIS TIME CAREGIVER STILL IN THE ROOM. AGREES THE FOOD IS GOOD DENIES NEEDS
--- NOTE | 2024-10-07 13:32 | NUR ---
CAREGIVER GOES HOME STATES SHE HAS TO GET SOME REST. PT ATE 100% OF NOON MEAL APPEARS TO BE COPING WITH ABSENCE OF CAREGIVER WELL. SITTING UP IN BED WATCHING TV. BED ALARM IS SET. VISUAL TO RN STATION
--- NOTE | 2024-10-07 15:10 | NUR ---
pt working with p/t
--- NOTE | 2024-10-07 16:05 | NUR ---
PT HAS SHOWN NO S/S OF PAIN THIS SHIFT AND COOPERATED WITH P/T. PT ANSWERS "NO" WHEN ASKED IF HIS ANKLE HURTS. RESTING IN BED EYES CLOSED AT THIS TIME
--- NOTE | 2024-10-07 17:20 | NUR ---
Assisted RN in changing Pt's brief and bedpad. Boosted Pt in bed. No other needs expressed by Pt. Call light left in reach. Bed alarm set. Caregiver in room. No other needs expressed by Pt.
--- NOTE | 2024-10-07 17:24 | NUR ---
PT UNDERGARMENT CHANGED AND DEVAUGHN CARE COMPLETE. REPOSITIONED FOR EVENING MEAL. PT SISTER IS PRESENT FOR MEAL TIME. DENIES FURTHER NEEDS OF.
--- NOTE | 2024-10-07 21:19 | NUR ---
Awake, restless, follows instructions, turned and repositioned in bed. skin care, clean attends, passing gas, no bm. suprapubic cath in place, draining clear yellow urine. site intact, care done. abd soft, HEA. L leg elevated in pillows, wigles toes, ortho boot/ dressing CDI. in place. SCDs to R leg. SL LAC patent. took senna and Miralax, tolerating liquids well. Medicated with 2 Conde per restlessness and stated "yes" when asked if he was on pain. Bed alarm and fall precautions pads in place.
--- NOTE | 2024-10-07 22:11 | NUR ---
IN BED, HOB ELEVATED, NO RESP DISTRESS. L LEG ELEVATED W PILLOWS, ORTHO BOOT IN PLACE, ICE REMOVED. SCDS R LEG. EYES CLOSED. BED ALRMS IN PLACE
--- NOTE | 2024-10-08 02:23 | NUR ---
ON ROOM AIR, EYES CLOSED. SP CATHERER IN PLACE, DRAINING YELLOW URINE. L LEG ON ORTHO BOOT IN PLCE, ELEVATED WITH PILLOWS. BED ALARM IN PLACE
--- NOTE | 2024-10-08 03:00 | NUR ---
PT WOKE UP RESTLESS, SCREAMING, TRYING TO GET OUT OF BED, REASSURED, REPOSITIONED IN BED, CALMED DOWN, MEDICATED IWTH 1 NORCO PER C/O L LEG PAIN. L LEG ORTHO BOOT IN PLACE, ELEVATED W PILLOWS, SCDS R LEG. WAS COOPERATIVE. AUDIBLE WHEZZING NOTED. LUNGS CLEAR BILAT, WHEEZING IN THROAT AREA AUSCULTATED. CLEARED AFTER CDB AND SIP OF WATER. NO SOB NOTED WITH EXERTION, HELPED WITH REPOSITIONING.
--- NOTE | 2024-10-08 04:13 | NUR ---
restsing, eyes closed, no s/sx distress. L leg elevated in pillows, scds R leg
[2024-10-08 05:00] VITALS: BP 145/64
--- NOTE | 2024-10-08 07:20 | NUR ---
PT RESTING QUIET ALERT AT TIME OF SHIFT REPORT. FRESH H20 PROVIDED. BED ALARM IS SET PT IS VISUAL TO RN STATION. HE DENIES PAIN OR NEEDS OF
--- NOTE | 2024-10-08 08:06 | NUR ---
PT'S CAREGIVER ARRIVES. UNDERGARMENT CHANGED AND PERICARE COMPLETED. PT UP TO THE CHAIR VIA DANICA, CAREGIVER REMAINS AND CHAIR ALARM IN PLACE. BREAKFAST ARRIVES PT SELF FEEDING MORNING MEAL
--- NOTE | 2024-10-08 08:40 | NUR ---
Patient sitting in chair for breakfast. Visitor in room.
--- NOTE | 2024-10-08 08:49 | NUR ---
ROLANDO AT [facility] STATES THEY ARE ABLE TO ACCEPT PATIENT FOR SNF.
--- NOTE | 2024-10-08 09:22 | NUR ---
CAREGIVER, BRII, IN ROOM AT THIS TIME. NOTIFIED PATIENT WILL BE DISCHARGED TO [facility]. INFORMED HER HE WILL LIKELY GO NON EMERGENT TRANSPORT THIS AFTERNOON. DR. MCDONADL OK WITH PATIENT DISCHARGING TODAY.
[2024-10-08 09:36] VITALS: BP 143/65
--- NOTE | 2024-10-08 09:52 | NUR ---
PT RESTING IN RECLINER CAREGIVER REMAINS PRESENT. PT EYES CLOSED APPEARS RELAXED AND COMFORTABLE
--- NOTE | 2024-10-08 10:07 | NUR ---
SPOKE WITH GABRIELLE LAND. DISCUSSED TRANSFER TO [facility] TODAY.ALSO OBTAINED HER ADDRESS [address] [place] [address] [address], [place] [address], TO SEND CERTIFIED LETTER FOR IMM. DISCUSSED IMM LETTER WITH HER OVER THE PHONE AND REQUEST SHE SEND SIGNED LETTER BACK.
--- NOTE | 2024-10-08 10:40 | NUR ---
CALLED LUCINA PARKER TO SCHEDULE TRANSPORT TO [facility] AT 1300, THEY WILL PICK PATIENT UP FOR TRANSPORT AT THAT TIME.
[2024-10-08] MEDS ORDERED: HYDROCODON-ACE1 EA11 PO (10:44)
--- NOTE | 2024-10-08 11:14 | NUR ---
PT NOT AVAILABLE FOR VISIT. PROVIDED PRAYER.
--- NOTE | 2024-10-08 11:15 | NUR ---
JUAN FROM [facility] GOES OVER DC PLANS WITH PT AND ANSWERS ALL QUESTIONS. THIS BEAD PREPARER GAVE REPORT TO RECEIVING FACILITY ALL QUESTIONS ANSWERED. PT REMAINS CALM AND COOPERATIVE WAITING IN CHAIR WATCHING TV
[2024-10-08 11:16] VITALS: BP 143/65
--- NOTE | 2024-10-08 11:18 | NUR ---
SUPRAPUBIC CATH CARE COMPLETED APPROPRIATELY
--- NOTE | 2024-10-08 11:19 | NUR ---
PT REMAINS UP IN THE CHAIR WATCHING TV WITH CAREGIVER BRII. HE AGREES HE IS COMFORTABLE. NO NEEDS AT THIS TIME
--- NOTE | 2024-10-08 12:16 | NUR ---
PT HAS VISITORS X4 PRESENT IN THE ROOM. HE CONTINUES UP IN THE CHAIR EATING NOON MEAL
[2024-10-08 13:24] VITALS: BP 154/65
== END 2024-10-08 13:55 | DRG 493 ==
LOC: ED 08:45 → MS 10:57
PROVIDERS: Emergency Medicine; ADMIT Specialist; ATTEND Specialist
PROC: 0QSH04Z Reposition Left Tibia with Internal Fixation Device, Open Approach (ICD-10-PCS; principal; 2024-10-05 09:45)
PROC: 0QSK04Z Reposition Left Fibula with Internal Fixation Device, Open Approach (ICD-10-PCS; principal; 2024-10-05 09:45)
DX: S82.852A Displaced trimalleolar fracture of left lower leg, initial encounter for closed fracture (principal); N39.0 Urinary tract infection, site not specified; E86.0 Dehydration; R29.6 Repeated falls; N18.9 Chronic kidney disease, unspecified; S01.01XA Laceration without foreign body of scalp, initial encounter; E78.5 Hyperlipidemia, unspecified; F41.9 Anxiety disorder, unspecified; W00.0XXA Fall on same level due to ice and snow, initial encounter
CPT/HCPCS: 01480; 29515; 36415; 64445; 73600; 73610; 80053; 85025; 93005; 93010; 94640; 94762; 97110; 97162; 97166; 97530; 99284-25; A9270; C1713; C1769; J0690; J1100; J1171; J1885; J2405; J2704; J2795; J3010; J7121